=== PATIENT | male | born 1955 | race Caucasian/White ===

== ENCOUNTER 2016-11-15 16:41 | Emergency (ER) | payer SELFPAY ==
[~2016-11-15] VITALS: Ht 170.2 cm; Wt 72.3 kg
[2016-11-15 17:17] VITALS: BP 112/81; PULSE 74; RESP 16; O2SAT 97
[2016-11-15] MEDS ORDERED: Gelatin Sponge 12-7 MM ONE ×2 (18:13→18:45)
--- NOTE | 2016-11-15 18:32 | ED.REPORT ---
HPI-Hand Prob/Inj Date of Service Nov 15, 2016 ED Provider: Palmira Steinberg Nursing Notes Stated Complaint: LACERATION ON LEFT FINGER Chief Complaint: Laceration Nursing Notes Reviewed: Yes Allergies: Coded Allergies: No Known Allergies (Unverified , 11/15/16) No Active Prescriptions or Reported Meds General Time Seen by Provider: 17:50 Chief Complaint Finger injury left, Finger pain left sliced fingertips off with a razor knife tonight. Hx Obtained From: Patient Arrived By: Walk-in Onset Occurred: Just prior to arrival Context of Onset: Home injury Symptom Duration: Since onset Progression Since Onset: Unchanged Caused by: Accidental, Knife wound Location: Left Hand: : Finger... (index and middle finger tip pads) Quality: Same as prior Radiation: Does not radiate Severity: Current: Mild Severity: Maximum: Moderate Associated with: Denies: Cold extremity, Numbness, Rash, Weak extremity Pertinent Negative: Pt denies other symptoms Pertinent Negative: Exacerbated by nothing, Relieved by nothing Immunizations: Tetanus not up to date (pt refusing Tdap in ED, will get one at [facility] tomorrow due to cost) Recent Healthcare: No recent doctor visit Similar Sx Previous: No Past Medical History Past Medical History healthy Review of Systems Basic Review of Systems Eyes: Vision NL, No discharge ENT: Hearing NL, No pain, No nasal congestion, No pharyngeal pain Respiratory: No shortness of breath, No cough, No wheeze Cardiovascular: No chest pain, No dyspnea on exertion, No orthopnea, No parox noct dyspnea, No palpitations GI: No abdominal pain, No nausea, No vomiting Hematologic: No bruising Endocrine: No cold intolerance, No heat intolerance, No weight gain, No weight loss Allergy / Immune: No allergy Psychiatric: Normal thought content Constitutional: Denies: Fever Musculoskeletal: Reports: Extremity pain Neurologic: Denies: Headache, Numbness Complete sys rev & neg: except as marked. Physical Exam Initial Vital Signs Vital Signs (First) Date Time Temp Pulse Resp B/P Pulse Ox O2 Delivery O2 Flow Rate FiO2 11/15/16 17:17 36.6 74 16 112/81 97 Room Air Initial VS: Reviewed General/Constitutional: Well-developed, Well-nourished Head / Eyes: Atraumatic, Normocephalic, PERRL ENT: Mucous membranes moist, Conjunctiva normal, No scleral icterus Neck: Full range of motion Respiratory: No respiratory distress Extremities: Vascular intact, Neuro intact, No swelling, No tenderness Skin: Warm, Dry, No cyanosis Neurologic: Alert, Oriented, Nonfocal Psychiatric: Mood/affect normal, Behavior normal, Normal thought content Wrist / Hand: Full range of motion, No deformity, Vascular intact, Tendon function NL Joint above & below: affected area is NL. Trauma / Burn / Environmental: Positive: Laceration (avulsion) complete avulsion to index and middle finger pads, active capillary bleeding without pressure applied Procedures Laceration Management Laceration Management: fingers cleansed and three layers of gelfoam dressing applied to obtain stasis, bulky dressing applied Procedure Performed by: Allied health pract Consent / Setup / Site Prep: Consent from patient, Time-out performed, Hand hygiene observed, Stand sterile technique Wound Length: 1 cm (middle finger), 2 cm (index finger) Digital Block: No Digit Involved: Index finger left, Middle finger left Wound Preparation: Normal saline Post-Procedure / Complications: Condition improved, Tolerated procedure well Discharge & Departure Primary Impression: Avulsion of finger tip Disposition: Home Discharge Condition All VS Reviewed: Yes Patient Instructions: Laceration (ED) Additional Instructions: Keep the wound clean and dry. Leave the bandage on for the next 2 days, then you may remove it and apply a plain bandaid. Bacitracin and a Band-Aid change 2 to 3 times a day. Ok to shower, but no swimming or soaking of the wound. Watch for signs of infection: redness, swelling, pain, or pus. Follow up with your regular doctor as needed or return to Urgent Care or the ER for any other concerns Referrals: Rehan Carr MD (PCP) EDSupervising Provider for APC: Jose Shannon MD, Lora L ARNP Nov 15, 2016 18:32
== END 2016-11-15 19:28 | disposition home or self-care (01) ==
LOC: SED 16:41
DX: S61.211A Laceration without foreign body of left index finger without damage to nail, initial encounter (principal); S61.213A Laceration without foreign body of left middle finger without damage to nail, initial encounter; W26.0XXA Contact with knife, initial encounter; Y93.89 Activity, other specified; Y99.8 Other external cause status; Y92.019 Unspecified place in single-family (private) house as the place of occurrence of the external cause